=== PATIENT | female | born 1965 | race Caucasian/White ===

== ENCOUNTER 2016-12-13 08:45 | Emergency (ER) | payer BC ==
[~2016-12-13] VITALS: Ht 157.5 cm; Wt 51.0 kg
[2016-12-13 08:50] VITALS: BP 130/73
[2016-12-13] MEDS ORDERED: ASPI-515 PO (08:59)
[2016-12-13] MEDS ORDERED: METO5TAB57 PO (08:59)
[2016-12-13] MEDS ORDERED: LOVA10TA PO (08:59)
[2016-12-13] MEDS ORDERED: INSU100C5 SQ-INSULIN (08:59)
[2016-12-13] MEDS ORDERED: LORA1TAB PO (08:59)
[2016-12-13] MEDS ORDERED: SODIUM CHLORIDE 0.9% 1,000ML IVBOLUS ONE (09:00)
[2016-12-13] MEDS ORDERED: SODIUM CHLORIDE FLUSH 10ML SYR IVF ONE (09:00)
[2016-12-13 09:26] LABS: RAPID INFLUENZA A Negative (Negative); RAPID INFLUENZA B Negative (Negative)
[2016-12-13 09:46] LABS: BLOOD UREA NITROGEN 17 mg/dL (7-18)
[2016-12-13] MEDS ORDERED: ACETAMINOPHEN 500 MG TABLET PO ONE (10:00)
[2016-12-13] MEDS ORDERED: ONDANSETRON 2MG/ML, 2ML IVPush ONE (10:00)
[2016-12-13 11:28] LABS: PATH.CAST-FLAG NOT PRESENT; SPERM-FLAG NOT PRESENT; SRC-FLAG NOT PRESENT; XTAL-FLAG NOT PRESENT; YLC-FLAG NOT PRESENT
== END 2016-12-13 12:14 | disposition home or self-care (01) ==
LOC: ED 09:11
DX: J20.9 Acute bronchitis, unspecified (principal); B96.89 Other specified bacterial agents as the cause of diseases classified elsewhere; D72.829 Elevated white blood cell count, unspecified; E11.9 Type 2 diabetes mellitus without complications
CPT/HCPCS: 36415; 71020; 80048; 81001; 82040; 83605; 85025; 87400; 96360; 96361; 99285; J7030

== ENCOUNTER 2019-09-04 13:18 | Emergency (ER) | payer BC ==
[~2019-09-04 13:18] MED LIST: ASPI-515 PO; INSU100C5 SQ-INSULIN; LORA1TAB PO; LOVA10TA PO; METO5TAB57 PO
--- NOTE | 2019-09-04 13:40 | NUR ---
NO ANSWER X 1
--- NOTE | 2019-09-04 13:55 | NUR ---
NO ANSWER X2
--- NOTE | 2019-09-04 14:06 | NUR ---
NO ANSWER X 3
== END 2019-09-04 14:07 ==
LOC: ED 14:01
DX: E11.9 Type 2 diabetes mellitus without complications (principal); Z53.21 Procedure and treatment not carried out due to patient leaving prior to being seen by health care provider

== ENCOUNTER 2019-09-27 13:44 | Emergency (ER) | payer BC ==
[~2019-09-27] VITALS: Ht 157.5 cm; Wt 49.2 kg
[2019-09-27 13:46] VITALS: BP 147/69
[2019-09-27 14:42] LABS: ALBUMIN 3.3 g/dL (3.4-5.0); ANION GAP 5 mmol/L (5-15); CALCIUM 8.9 mg/dL (8.5-10.1); CHLORIDE 111 mmol/L (98-107); CREATININE 0.94 mg/dL (0.55-1.02)
[2019-09-27 14:44] LABS: BASOPHILS # (AUTO) 0.03 x10^3/uL (0-0.1); BASOPHILS % (AUTO) 0 % (0-1); EOSINOPHILS # (AUTO) 0.34 x10^3/uL (0-0.4); EOSINOPHILS % (AUTO) 4 % (1-7); LYMPHOCYTES # (AUTO) 1.67 x10^3/uL (1-3.4); LYMPHOCYTES % (AUTO) 19 % (22-44); MD NO; MEAN CORPUSCULAR HEMOGLOBIN 28.5 pg (27.0-34.8); MEAN CORPUSCULAR HGB CONC 33.2 g/dL (32.4-35.8); MEAN PLATELET VOLUME 9.2 fL (7.4-10.4); MONOCYTES # (AUTO) 0.42 x10^3/uL (0.2-0.8); MONOCYTES % (AUTO) 5 % (2-9); NEUTROPHILS # (AUTO) 6.13 x10^3/uL (1.8-6.8); NEUTROPHILS % (AUTO) 71 % (42-75); PLATELET COUNT 232 x10^3/uL (130-400); RED BLOOD COUNT 4.38 x10^6/uL (3.82-5.3); RED CELL DISTRIBUTION WIDTH 14.3 % (9.6-15.2)
--- NOTE | 2019-09-27 14:59 | NUR ---
REPORT TO MERCED VELASQUEZ. URINE HAS BEEN SENT AND IS PENDING.
[2019-09-27 15:18] LABS: MICROSCOPIC NOT IND
[2019-09-27 15:20] LABS: CULTURE INDICATED? NO
== END 2019-09-27 15:45 | disposition home or self-care (01) ==
LOC: ED 14:30
DX: S29.012A Strain of muscle and tendon of back wall of thorax, initial encounter (principal); E11.9 Type 2 diabetes mellitus without complications; F17.200 Nicotine dependence, unspecified, uncomplicated; X58.XXXA Exposure to other specified factors, initial encounter; Y93.89 Activity, other specified; Y92.89 Other specified places as the place of occurrence of the external cause; Y99.8 Other external cause status
CPT/HCPCS: 36415; 71046; 80048; 81003; 82040; 85025; 99284